=== PATIENT | male | born 1995 | race Caucasian/White ===

== ENCOUNTER 2024-03-31 13:22 | Emergency (ER) | payer OTHER, SELFPAY ==
[2024-03-31 13:23] VITALS: BP 119/79; PULSE 96; RESP 18; TEMP 36.6; O2SAT 97
--- NOTE | 2024-03-31 13:38 | ED_ITS ---
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 Onset (ago): day(s) Location: other Extremity Location: Left: hand ( With erythema warmth and tenderness) Place: work Patient tetanus UTD: No Context: accidental Related Data Allergies Allergy/AdvReac Type Severity Reaction Status Date / Time No Known Allergies Allergy Verified 03/31/24 13:32 Review of Systems Review of Systems: All systems reviewed & are unremarkable except as noted in HPI and below PMFSH Past Medical History Medical History Patient denies medical problems Exam Const: General: healthy appearing Nutritional Appearance: well nourished Orientation/consciousness: patient oriented x3 Limitations: no limitations Resp: Effort & Inspection: normal respiratory effort Auscultation: clear to auscultation bilaterally Cardio: Rate: regular rate Rhythm: regular rhythm Skin: Wounds: wounds noted Other: small avulsion injury to his left knuckle with an area of erythema approximately 2cm in diameter Course Course Emergency Course: patient updated with tetanus and will prescribe medication for pain and antibiotics. Vital Signs Vital signs: Vital Signs Temperature 36.6 C 03/31/24 13:23 Pulse Rate 96 03/31/24 13:23 Respiratory Rate 18 03/31/24 13:23 Blood Pressure 119/79 03/31/24 13:23 Pulse Oximetry 97 03/31/24 13:23 Oxygen Delivery Room Air 03/31/24 13:23 Temperature 36.6 C 03/31/24 13:23 Pulse Rate 96 03/31/24 13:23 Respiratory Rate 18 03/31/24 13:23 Blood Pressure 119/79 03/31/24 13:23 Pulse Oximetry 97 03/31/24 13:23 Oxygen Delivery Room Air 03/31/24 13:23 Critical Care Time Critical Care Time Critical Care Time: No Discharge Plan Discharge Clinical Impression: Avulsion of skin, Cellulitis and abscess of hand Patient Disposition: Home, Self-Care Condition: Stable Instructions: Antibiotic Form, Cellulitis (ED), Skin Avulsion (ED) Additional Instructions: advised to take medication as prescribed and follow up with primary if symptoms persist or worsen. Prescriptions: New amoxicillin-pot clavulanate [Augmentin] 500-125 mg tablet 1 tablet PO TID Qty: 30 0RF mupirocin 2 % ointment 1 applic topical TID 7 Days Qty: 15 0RF tramadol 50 mg tablet 50 mg PO Q6H PRN (Reason: pain) Qty: 20 0RF Follow-up/Referrals: UNKNOWN,DOCTOR [Primary Care Provider] - Time of Disposition: 13:46
[2024-03-31] MEDS: TETANUS,DIPHTHERIA,AC PERTUSSIS ADULT 0.5 ML (ADACEL) IM (13:51)
== END 2024-03-31 13:57 | disposition home or self-care (01) ==
LOC: CHSED 13:48
PROVIDERS: Emergency Provider Emergency Medicine
DX: S69.92XA Unspecified injury of left wrist, hand and finger(s), initial encounter (principal); L03.114 Cellulitis of left upper limb; Z23 Encounter for immunization; W45.8XXA Other foreign body or object entering through skin, initial encounter
CPT/HCPCS: 90471; 90715; 99283

== ENCOUNTER 2024-12-02 14:59 | Emergency (ER) | payer SELFPAY ==
[2024-12-02 14:59] VITALS: BP 139/88; PULSE 82; RESP 18; TEMP 36.6; O2SAT 100
--- OUTSIDE RECORDS SUMMARY | 2024-12-02 15:00 | XMS_ITS | Encounter Summary ---
Author Organization [facility] Address [address] [place] [address] Care Team Providers Care Milk Pickup Truck Driver Name Role Phone None, Provider Primary Care Provider Unavaila ble Encounter Details Date Type Department Care Team (Late st Contact Info) Description 03/26/[address] 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
--- OUTSIDE RECORDS SUMMARY | 2024-12-02 15:00 | XMS_ITS | Clinical Summary ---
Author Organization [facility] Address [address] [place] [address] Care Team Providers Care Vocational Evaluator Name Role Phone None, Provider MD Primary Care Provider Unavaila ble Allergies Active Allergy Reactions Criticality Noted Date Comments Dander Unknown 05/12/2016 Medications No known medications Active Problems No known active problems Social History Tobacco Use Types Packs/Day Years Used Date Smoking Tobacco: Former Smokeless Tobacco: Never Tobacco Cessation:Counseling Given: Not Answered Alcohol Use Standard Drinks/Week Comments Never 0 (1 standard drink = 0.6 oz pur e alcohol) Sex and Gender Information Value Date Recorded Sex Assigned at Not on file 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 Gender Identity Not on file Sexual Orientation Not on file Last Filed Vital Signs Vital Sign Reading Time Taken Comments Blood Pressure 135/96 06/01/2024 3:01 AM CDT Pulse 70 06/01/2024 3:01 AM CDT Temperature 36.8 C (98.2 F) 06/01/2024 3:01 AM CDT Respiratory Rate 16 06/01/2024 3:01 AM CDT Oxygen Saturation 100% 06/01/2024 3:01 AM CDT Inhaled Oxygen Concentration - - Weight 72.6 kg (160 lb) 06/01/2024 3:01 AM CDT Height 185.4 cm (6' 1 ) 06/01/2024 3:01 AM CDT Body Mass Index 21.11 06/01/2024 3:01 AM CDT Plan of Treatment Health Maintenance Due Date Last Done Comments Annual Physical 1998 Hepatitis C 2013 COVID-19 Vaccine ( season) 2024 Influenza Adult (#1) 2024 01/21/2019, 09/23/2012, 09/30/2011, Additional history exists DTaP, Tdap and Td Vaccines (5 - Td or Tdap) 11/03/2025 11/03/2015, 06/21/2009, 07/25/1999, Additional history exists Hepatitis B Vaccines Completed 1995, 1995, 1995 Meningococcal Vaccine Aged Out 06/21/2009 No danny oziel eligible based on patient's age to complete this topic HPV Vaccines Aged Out No longer eligi ble based on patient's age to complete this topic Meningococcal B Vaccine Aged Out No l onger eligible based on patient's age to complete this topic Pneumococcal Vaccine: Pediatrics (0 to 5 Years) and At-Risk Patients (6 to 64 Years) Aged Out No longer eligible based on patient's age to complete this topic RSV Immunizations Under 20 Months Aged Out No longer eligible based on patient's age to complete this topic Insurance [employer] Care Teams Vocational Evaluator Relationship Specialty Start Date End Date None, Provider, PCP - General 05/25/22
[2024-12-02] MEDS: HYDROcodone/acetaminophen (*CRX) 5-325 MG TABLET 1 TAB PO (15:11)
[2024-12-02] MEDS: KETOROLAC (*BKC) 60 MG/2 ML VIAL IM (15:12)
--- NOTE | 2024-12-02 15:15 | ED.DENTAL ---
HPI - Dental/Oral General Chief complaint: Dental/Oral Stated complaint: mouth pain Time Seen by Provider: 12/02/24 15:05 Source: patient Mode of arrival: ambulatory Limitations: no limitations History of Present Illness HPI Narrative: patient is status post dental extraction 8 days ago, was doing okay 5 days later, over the last 3 days been having severe pain at the site of extraction. Patient denies any fever, chills, nausea vomiting, difficulty swallowing or breathing. patient is telling me that his dentist office is closed today. Patient was discharged on ibuprofen and tramadol. Related Data Allergies Allergy/AdvReac Type Severity Reaction Status Date / Time No Known Allergies Allergy Verified 03/31/24 13:32 Review of Systems Review of Systems: All systems reviewed & are unremarkable except as noted in HPI and below PMFSH Past Medical History Medical History Patient denies medical problems Exam Narrative: General appearance: Well-developed, well-nourished Skin: Normal color Eyes: Clear conjunctiva ENT: Oropharynx normal, ears normal, nose normal , status post dental extraction 2 premolars at the left lower side showing swollen gum, erythematous,no abscess formation, no discharge diffusely tender to touch Neck: Supple, nontender Neurologic: Alert and oriented ?3, INTERNAL AUDIT CONSULTANT is normal as tested, no gross motor deficit Course Vital Signs Vital signs: Vital Signs Temperature 36.6 C 12/02/24 14:59 Pulse Rate 82 12/02/24 14:59 Respiratory Rate 18 12/02/24 14:59 Blood Pressure 139/88 12/02/24 14:59 Pulse Oximetry 100 12/02/24 14:59 Oxygen Delivery Room Air 12/02/24 14:59 Temperature 36.6 C 12/02/24 14:59 Pulse Rate 82 12/02/24 14:59 Respiratory Rate 18 12/02/24 14:59 Blood Pressure 139/88 12/02/24 14:59 Pulse Oximetry 100 12/02/24 14:59 Oxygen Delivery Room Air 12/02/24 14:59 MDM - Dental/Oral MDM Narrative Medical decision making narrative: differential diagnosis include dry socket, less likely dental infection. My plan to discharge patient on antibiotic just in case for a possible infection and ibuprofen and follow up with dentist as soon as possible Differential Diagnosis Differential diagnosis: Likely gingival abscess, toothache and other ( dry socket) Critical Care Time Critical Care Time Critical Care Time: No Discharge Plan Discharge Clinical Impression: Dry tooth socket, Dental infection Patient Disposition: Home, Self-Care Condition: Stable Instructions: Antibiotic Form, Dry Socket (ED) Additional Instructions: Return if symptoms are worsening , call your dentist as soon as possible for evaluation and management, take Tylenol 650 every 6 hours as needed and/or ibuprofen 800 mg every 8 hours as as needed for aches and pain, continue home medications. Avoid smoking and alcohol Rinse your mouth gently with salt water several times a day Use a soft breast old toothbrush and avoid vigorous brushing over the socket Eat soft, bland foods that do not require chewing extensively Drink plenty of fluids and stay hydrated. Apply cool compresses to the affected area to use pain and swelling Patient Language: Nepali Prescriptions: New clindamycin HCl 300 mg capsule 300 mg PO Q6H Qty: 28 0RF ibuprofen [IBU] 800 mg tablet 800 mg PO TID Qty: 20 0RF No Action amoxicillin-pot clavulanate [Augmentin] 500-125 mg tablet 1 tablet PO TID Qty: 30 0RF mupirocin 2 % ointment 1 applic topical TID 7 Days Qty: 15 0RF tramadol 50 mg tablet 50 mg PO Q6H PRN (Reason: pain) Qty: 20 0RF Follow-up/Referrals: UNKNOWN,DOCTOR [Primary Care Provider] - Stand Alone Forms: Work/School Release IP
--- OUTSIDE RECORDS SUMMARY | 2024-12-02 15:33 | XMS_ITS | Clinical Summary ---
Author Organization 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
--- OUTSIDE RECORDS SUMMARY | 2024-12-02 15:33 | XMS_ITS | Encounter Summary ---
Author Organization [facility] Address [address] [place] [address] Care Team Providers Care Internet Sales Representative Name Role Phone None, Provider Primary Care Provider Unavaila ble Encounter Details Date Type Department Care Team (Late st Contact Info) Description 03/26/[address] 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
== END 2024-12-02 15:30 | disposition home or self-care (01) ==
LOC: CHSED 15:31
PROVIDERS: Emergency Provider Emergency Medicine
DX: M27.3 Alveolitis of jaws (principal); K04.7 Periapical abscess without sinus
CPT/HCPCS: 96372; 99283; A9270; J1885

== ENCOUNTER 2025-06-25 09:25 | Emergency (ER) | payer SELFPAY ==
[2025-06-25 09:25] VITALS: BP 160/100; PULSE 83; RESP 16; TEMP 36.2; O2SAT 99
--- NOTE | 2025-06-25 09:36 | ED_ITS ---
HPI - General Adult General Chief complaint: Animal Bite Stated complaint: dog bite to thumb Time Seen by Provider: 06/25/25 09:33 History of Present Illness HPI narrative: Eugene is a previously healthy 30M that presented to the ED after a dog bite from his significant others, mothers dog yesterday. They report the dog is well cared for and has its shots. The thumb started to become red and painful so he came in. No fevers or systemic symptoms. Related Data Allergies Allergy/AdvReac Type Severity Reaction Status Date / Time No Known Allergies Allergy Verified 06/25/25 09:35 Review of Systems Review of Systems: All systems reviewed & are unremarkable except as noted in HPI and below [facility] Past Medical History Medical History Patient denies medical problems Exam Const: General: cooperative, healthy appearing, comfortable, no acute distress, well developed, alert, awake and Physically active Orientation/consciousness: oriented to person, oriented to place and oriented to time HENMT: Head: normal to inspection, normocephalic and atraumatic Ears: hearing grossly normal bilaterally and external ears normal Face/Nose/Sinus: Normal external nose present Eyes: General: appearance normal, both eyes and all related structures Periorbital: periorbital findings normal Sclera: sclerae normal Pupils: Equal, round and reactive pupils present Neck: Neck: normal visual inspection Chest: Chest palpation & inspection: normal inspection of the chest Resp: Effort & Inspection: normal respiratory effort, able to speak in complete sentences and no respiratory distress Cardio: Jugular venous distension: no JVD Skin: General skin exam: normal color and no rashes or lesions noted Other: left thumb had 2 small lacerations / skin tears Neuro: General: oriented to person, oriented to place and oriented to time Cranial nerves: Yes Equal, round and reactive pupils present Extrem: General: normal to inspection Course Course Emergency Course: Wound irrigated and cleaned with Hibiclens. It was inspected and no foreign bodies were found. He could flex the finger with good strength at all joints Vital Signs Vital signs: Vital Signs Temperature 97.2 F L 06/25/25 09:25 Pulse Rate 83 06/25/25 09:25 Respiratory Rate 16 06/25/25 09:25 Blood Pressure 160/100 H 06/25/25 09:25 Pulse Oximetry 99 06/25/25 09:25 Oxygen Delivery Room Air 06/25/25 09:25 Temperature 97.2 F L 06/25/25 09:25 Pulse Rate 83 06/25/25 09:25 Respiratory Rate 16 06/25/25 09:25 Blood Pressure 160/100 H 06/25/25 09:25 Pulse Oximetry 99 06/25/25 09:25 Oxygen Delivery Room Air 06/25/25 09:25 Medical Decision Making Vital Signs Vital Signs: Vital Signs Temperature 97.2 F L 06/25/25 09:25 Pulse Rate 83 06/25/25 09:25 Respiratory Rate 16 06/25/25 09:25 Blood Pressure 160/100 H 06/25/25 09:25 Pulse Oximetry 99 06/25/25 09:25 Oxygen Delivery Room Air 06/25/25 09:25 Temperature 97.2 F L 06/25/25 09:25 Pulse Rate 83 06/25/25 09:25 Respiratory Rate 16 06/25/25 09:25 Blood Pressure 160/100 H 06/25/25 09:25 Pulse Oximetry 99 06/25/25 09:25 Oxygen Delivery Room Air 06/25/25 09:25 Discharge Plan Discharge Clinical Impression: Dog bite Patient Disposition: Home Condition: Stable Instructions: Antibiotic Form Patient Language: Icelandic Prescriptions: New amoxicillin-pot clavulanate 875-125 mg tablet 1 tablet PO Q12H Qty: 10 0RF No Action clindamycin HCl 300 mg capsule 300 mg PO Q6H Qty: 28 0RF ibuprofen [IBU] 800 mg tablet 800 mg PO TID Qty: 20 0RF amoxicillin-pot clavulanate [Augmentin] 500-125 mg tablet 1 tablet PO TID Qty: 30 0RF mupirocin 2 % ointment 1 applic topical TID 7 Days Qty: 15 0RF tramadol 50 mg tablet 50 mg PO Q6H PRN (Reason: pain) Qty: 20 0RF Follow-up/Referrals: Bennett Linn MD [Primary Care Provider, Internal Medicine] Stand Alone Forms: Work/School Release IP
== END 2025-06-25 09:50 | disposition home or self-care (01) ==
PROVIDERS: Emergency Provider Family Medicine; PCP Family Medicine
DX: S61.052A Open bite of left thumb without damage to nail, initial encounter (principal); W54.0XXA Bitten by dog, initial encounter
CPT/HCPCS: 99283; A9270

== ENCOUNTER 2025-07-27 10:41 | Emergency (ER) | payer SELFPAY ==
[2025-07-27 10:42] VITALS: BP 134/85; PULSE 100; RESP 16; TEMP 36.6; O2SAT 99
--- NOTE | 2025-07-27 10:50 | ED_ITS ---
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 Patient has no recent injuries has a good radial pulse bilaterally with no elbow, shoulder or neck pain. No fever chills. Onset (ago): week(s) Quality: aching and tingling ( Tingling and numbness bilateral hands mainly in the 3rd and 4th fingers bilaterally) Related Data Allergies Allergy/AdvReac Type Severity Reaction Status Date / Time No Known Allergies Allergy Verified 07/27/25 11:03 Review of Systems Review of Systems: All systems reviewed & are unremarkable except as noted in HPI and below PMFSH Past Medical History Medical History Patient denies medical problems Exam Const: General: healthy appearing and no acute distress Nutritional Appearance: well nourished Neck: Neck: normal visual inspection, no lymphadenopathy and no meningeal signs Resp: Effort & Inspection: normal respiratory effort Auscultation: clear to auscultation bilaterally Cardio: Rate: regular rate Rhythm: regular rhythm GI: GI Palp: Yes Soft to palpation Auscultation: normal bowel sounds Neuro: General: patient oriented x3 and moves all extremities Extrem: Other: during current exam patient has a negative Phalen and a negative Tinel sign, but does complain of numbness and tingling in his 3rd and 4th fingers bilaterally Course Course Emergency Course: medical decision making narrative: 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 History is obtained from the patient Dileep and janice story and physical exam performed witnessed by nurse Sousa. Patient currently asymptomatic on exam no acute distress no hand pain or numbness currently. Vitals are stable Patient agrees with discussion after shared decision making he agrees with discharge, all questions answered to the patient's satisfaction. Advise follow- up within 3 to 5 days with and establish with a new provider. Vital Signs Vital signs: Vital Signs Temperature 36.6 C 07/27/25 10:42 Pulse Rate 100 10/09/25 10:42 Respiratory Rate 16 07/27/25 10:42 Blood Pressure 134/85 07/27/25 10:42 Pulse Oximetry 99 07/27/25 10:42 Oxygen Delivery Room Air 07/27/25 10:42 Temperature 36.6 C 07/27/25 10:42 Pulse Rate 100 07/27/25 10:42 Respiratory Rate 16 07/27/25 10:42 Blood Pressure 134/85 07/27/25 10:42 Pulse Oximetry 99 07/27/25 10:42 Oxygen Delivery Room Air 07/27/25 10:42 Critical Care Time Critical Care Time Critical Care Time: No Discharge Plan Discharge Clinical Impression: Carpal tunnel syndrome on both sides Patient Disposition: Home Condition: Stable Instructions: Antibiotic Form, Carpal Tunnel Syndrome (DC), Paresthesia (ED) Additional Instructions: patient advised to establish care with a provider to have his carpal tunnel/ paresthesias evaluated. Advised to use wrist splints while working and while sleeping at home, take medication as prescribed. Patient Language: Bruneian Prescriptions: New naproxen 500 mg tablet 500 mg PO BID Qty: 14 0RF Rx Instructions: take with meals No Action clindamycin HCl 300 mg capsule 300 mg PO Q6H Qty: 28 0RF ibuprofen [IBU] 800 mg tablet 800 mg PO TID Qty: 20 0RF amoxicillin-pot clavulanate 875-125 mg tablet 1 tablet PO Q12H Qty: 10 0RF amoxicillin-pot clavulanate [Augmentin] 500-125 mg tablet 1 tablet PO TID Qty: 30 0RF mupirocin 2 % ointment 1 applic topical TID 7 Days Qty: 15 0RF tramadol 50 mg tablet 50 mg PO Q6H PRN (Reason: pain) Qty: 20 0RF Follow-up/Referrals: UNKNOWN,DOCTOR [Non-Staff] Stand Alone Forms: Work/School Release IP Time of Disposition: 11:05
== END 2025-07-27 11:15 | disposition home or self-care (01) ==
PROVIDERS: Emergency Provider Emergency Medicine; Referring Provider Family Medicine
DX: G56.03 Carpal tunnel syndrome, bilateral upper limbs (principal)
CPT/HCPCS: 99283